=== PATIENT | female | born 1995 ===

== ENCOUNTER 2016-10-26 00:45 | Inpatient (IN) | payer OTHER ==
[2016-10-26 01:08] VITALS: BMI 25.2
[2016-10-26] MEDS ORDERED: Oxytocin 20 units in LR 2,000 ML IV ONE (01:21)
[2016-10-26 01:22] LABS: HEMATOCRIT 35.5 % (34.0-47.0); MEAN CELL VOLUME 92.5 fL (81.0-99.0); MEAN CORPUSCULAR HEMOGLOBIN 30.6 pg (27.0-31.0); MEAN CORPUSCULAR HGB CONC 33.1 g/dL (33.0-37.0); MEAN PLATELET VOLUME 8.8 fL (7.2-11.7); RED CELL DISTRIBUTION WIDTH 15.7 % (11.5-14.5); WHITE BLOOD COUNT 11.1 K/uL (4.8-10.8)
[2016-10-26] MEDS ORDERED: Lidocaine 2% Inj (20ml) ONE (01:27)
[2016-10-26] MEDS ORDERED: Lactated Ringer's 1,000 ML IV SCH (01:30)
--- NOTE | 2016-10-26 01:30 | OBHP ---
Datetime: 10/26/2016 01:25 IP Adm Impression: Term, intrauterine ; Active labor IP Admit Plan: Admit to unit; Initiate labor protocol Admit Comment, IP Provider: Patient with reported SROM at midnight. Fully dialted on my exam. Dr. Ramos present and took over care of her patient Assessment: 21 yo P1, 38wweks, at end of Stage 1 of labor. Category 1 tracing. Clinically stble. Plan: - Anticipate vaginal delivery Presentation-Admit: Vertex FHR - Baseline A Provider: 150 Contraction Comments Provider: 2-4 Gestation - Est Wks by US: 38.0 EGA AdmitDate IP: 39.1 IP Chief Complaint: Uterine contractions; Suspected ruptured membranes NICHD Variability Prov Fetus A: Moderate 6-25bpm NICHD Decel Fetus A IP Provider: None Dilatation, Provider: 10 Effacement, Provider: 100 Station, Provider: 2
[2016-10-26 01:33] LABS: CHLORIDE 101 mmol/L (98-107)
[2016-10-26 01:34] LABS: POTASSIUM 4.5 mmol/L (3.6-5.2); SODIUM 133 mmol/L (132-148)
[2016-10-26 01:36] LABS: ALB/GLOB RATIO 0.9 (1.0-2.1); BILIRUBIN,TOTAL 0.9 mg/dL (0.2-1.3); CARBON DIOXIDE 22 mmol/L (22-30); GFR AFRICAN-AMERICAN > 60
[2016-10-26 01:37] LABS: ALKALINE PHOSPHATASE 156 U/L (38-126); ALT/SGPT 12 U/L (9-52); AST/SGOT 33 U/L (14-36); BLOOD UREA NITROGEN 10 mg/dL (7-17); CALCIUM 8.6 mg/dl (8.6-10.4); GLUCOSE,RANDOM 82 mg/dL (65-105)
--- NOTE | 2016-10-26 01:50 | OBADHP ---
Datetime: 10/26/2016 01:43 Admit Comment, IP Provider: chief complaint-contractions HPI 21 y/o at 38 wga with c/o contractions since 9 pm on 10/25/16 and srom at midnight.contrac tions became more painful after that and hence she came to the ER.Patient denies any vaginal bleeding .Reports active movement cousre complicated by recurrent bartholins cyst PMH denies PSH bartholins cyst drainage OBGYN HX ; nvdx1; first complicated by oligohydramnios Social hx denies tobacco, alcohol or illicit drug use Exam see exam section A/P 21 Y/o at 38 wga in labor.SROM -admit -see orders Pelvic Type - PN: Adequate Extremities - PN: Normal Abdomen - PN: Normal Back - PN: Normal Lungs - PN: Normal Heart - PN: Normal Neurologic - PN: Normal General - PN: Normal Presentation-Admit: Vertex FHR - Baseline A Provider: 140s Contraction Comments Provider: every 2 min Gestation - Est Wks by US: 38.0 IP Hx Assessment: The History has been Reviewed and is Current Vital Signs Provider: Reviewed; Within Normal Limits IP Chief Complaint: Uterine contractions NICHD Variability Prov Fetus A: Moderate 6-25bpm Dilatation, Provider: 10 Effacement, Provider: 100 Station, Provider: 2 Genitourinary Exam: Normal DTRs - PN: Normal EGA AdmitDate IP: 38.0 IP Adm Impression: Term, intrauterine ; Active labor IP Admit Plan: Admit to unit Datetime: 10/26/2016 01:25 NICHD Decel Fetus A IP Provider: None
[2016-10-26] MEDS ORDERED: Oxycodone/Acetaminophen 5/325 mg Tab PO PRN (01:57)
[2016-10-26] MEDS ORDERED: Benzocaine/Menthol 20%-0.5% Topical Spray (60 ml) TOP PRN (01:57)
--- NOTE | 2016-10-26 01:57 | OBDS ---
DELIVERY PERSONNEL Nurse Micro Computer Specialist Certified: N/A Delivery Doctor: Pamella Wesley MD Scrub Nurse: N/A General Expeditor: EMERALD DAVISON Anesthesiologist: N/A Grinder Set Up Operator Surface: N/A Resident: N/A MATERNAL INFORMATION Delivery Anesthesia: None Medications in Delivery: pitocin 20 units in 1L LR Placenta Cultured: No Maternal Complications: None RN Comments: BARTHOLIN'S CYST DRAINED BY DR WESLEY Provider Comments: patient rapidly progressed to being fully dilated. of a male from CEASAR position.Body and shoulders delivered without difficulty.Cord clampe d and cut.cord blood collected.Placenta spontaneosuly delivered.Lower uterine segment noted to be sharda marian.Im methergine 0.2 mg given afer which fundus noted to be firm. Right bartholin's gland cyst noted.Verbal consent obtained for the cyst drainage from patient.Are a cleaned with betadine.Needle drainage done and site of drainage noted to be hemostatic.Clear serous fluid drained.Bimanual exam done and it was noted that fundus was firm and bleeding average.Patient and infant stable and bonding.Apgars 9/9 at 1 and 5 min of life. weight 6 pounds 6 ounces LABOR SUMMARY EDC: 11/09/2016 00:00 No. Babies in Womb: 1 Attempted: No Labor Anesthesia: None LABOR INFORMATION Onset of Labor: 10/26/2016 00:00 Complete Dilatation: 10/26/2016 01:07 Group B Beta Strep: Done, Result Unknown Antibiotics # of Doses: 1 Antibiotics Time of Last Dose: 01010/26/2016 MEMBRANES Membranes Rupture Method: Spontaneous Rupture of Membranes: 10/26/2016 00:00 Length of Rupture (hrs): 1.30 Amniotic Fluid Color: Clear Amniotic Fluid Amount: Small Amniotic Fluid Odor: Normal STAGES OF LABOR Stage 1 hrs: 1 Stage 1 min: 7 Stage 2 hrs: 0 Stage 2 min: 11 Stage 3 hrs: 0 Stage 3 min: 7 Total Time in Labor hrs: 1 Total Time in Labor min: 25 VAGINAL DELIVERY Episiotomy: None Laceration Extension: N/A Laceration Type: None Other Laceration: N/A Laceration Repair: N/A Initial Vag Sponge Count: 10 X-RAYS, 1 LAP Final Vag Sponge Count: 10 X-RAYS, 1 LAP Initial Vag Sharps Count: 0 Final Vag Sharps Count: 0 Sponge Count Correct: Yes; Vaginal Sweep Performed Sharps Count Correct: N/A Count Comment: ALL ACCOUNTED FOR BABY A INFORMATION Infant Delivery Date/Time: 10/26/2016 01:18 Method of Delivery: Vaginal Forceps: N/A SHOULDER DYSTOCIA BABY A Infant Delivery Date/Time: 10/26/2016 01:18 PRESENTATION/POSITION BABY A Presentation: Cephalic Cephalic Presentation: Vertex Vertex Position: Left Occipital Anterior Breech Presentation: N/A PLACENTA INFORMATION BABY A Placenta Delivery Time : 10/26/2016 01:25 Placenta Method of Delivery: Spontaneous Placenta Status: Delivered SCORES BABY A Heart Rate 1 min: >100 bpm Resp Effort 1 min: Good Cry Reflex Irritability 1 min: Cough or Sneeze or Pulls Away Muscle Tone 1 min: Active Motion Color 1 min: Body [place], Extremities Blue Resuscitation Effort 1 min: N/A SCORE 1 MIN: 9 Heart Rate 5 min: >100 bpm Resp Effort 5 min: Good Cry Reflex Irritability 5 min: Cough or Sneeze or Pulls Away Muscle Tone 5 min: Active Motion Color 5 min: Body Vol[place], Extremities Blue SCORE 5 MIN: 9 INFORMATION BABY A Gestational Age at Delivery: 39.1 Gestational Status: Term Outcome : Liveborn Infant Condition : Stable Sex: Male IDENTIFICATION/MEDS BABY A ID Band Number: [id number] ID Band Location: Left Leg; Left Arm Sensor Applied: Yes Sensor Number: [id number] Sensor Location : Right Leg Vitamin K Given : Aquamephyton 1 mg IM; Left Thigh Erythromycin Given: Given Both Eyes WEIGHT/LENGTH BABY A Birthweight (gms): 2905 Infant Weight (lb): 6 Infant Weight (oz): 6 Length Inches: 19.50 Length cms: 49.5 CORD INFORMATION BABY A No. Cord Vessels: #3 Nuchal Cord : N/A Nuchal Cord Other: N/A True Knot: N/A Infant Cord pH Baby Arterial: N/A Cord pH Baby Venous: N/A Cord Blood Taken: Yes Banking/Donate Info: N/A Infant Suction: None ASSESSMENT BABY A Infant Complications: None Physical Findings at Delivery: Within Normal Limits Infant Respirations: Appears Normal Seamer Elastic Band/ALS Called : No Infant Care By: van Transferred To: Remains with Mother
[2016-10-26] MEDS: Oxycodone/Acetaminophen 5/325 mg Tab PO PRN ×3 (04:31→20:37)
[2016-10-26 07:40] VITALS: O2SAT 98
[2016-10-26] MEDS: Multiple Vitamins Tab PO SCH (09:27)
[2016-10-27 06:23] LABS: EOS # 0.2 K/uL (0.0-0.7); MEAN PLATELET VOLUME 8.7 fL (7.2-11.7); RED CELL DISTRIBUTION WIDTH 15.8 % (11.5-14.5)
[2016-10-27 06:26] LABS: BASO % 0.3 % (0.0-2.0); EOS % 1.6 % (0.0-4.0); HEMATOCRIT 32.6 % (34.0-47.0); LYMPH # 2.9 K/uL (1.0-4.3); LYMPH % 23.8 % (20.0-40.0); MEAN CELL VOLUME 93.3 fL (81.0-99.0); MEAN CORPUSCULAR HEMOGLOBIN 30.8 pg (27.0-31.0); MONO # 0.6 K/uL (0.0-0.8); MONO % 5.3 % (0.0-10.0); WHITE BLOOD COUNT 12.1 K/uL (4.8-10.8)
[2016-10-27] MEDS: Multiple Vitamins Tab PO SCH (09:10)
[2016-10-27 16:16] VITALS: BP 100/57; PULSE 85; RESP 20; TEMP 97.1
--- NOTE | 2016-10-27 21:20 | OBPPN ---
Datetime: 10/27/2016 21:15 PP Pain Prov: Within normal limits PP Nausea Prov: Denies PP Flatus Prov: Yes PP BM Prov: No PP Heart Prov: Normal PP Lungs Prov: Normal PP Abdomen/Uterus Prov: Normal PP Lochia Prov: Normal PP Vulva/Perineum Prov: Normal PP CVA Tenderness Prov: Normal PP Extremities Prov: Normal PP C/S Incision Prov: Not Applicable PP Progress Prov: Normal PP Impression Prov: Normal progression PP Plan Prov: Discharge PP Progress Note Prov: Late note entry for patient seen at 7.15 am S-patient denies any compalint.pain well controlled.denies nausea, vomiting, headache. chest pain, shortness of breath, numbness or tingling in hands and feet OVSS Afebrile Fundus firm and below umbilcus Extremities no calf tenderness A/P Patient s/p vaginal delivery ppd 1 doing well -requesting to go home discharge follow up in clinic in 6 weeks Vital Signs Provider PP: Reviewed; Within Normal Limits
--- NOTE | 2016-10-27 21:22 | OBDCSUM ---
Datetime: 10/27/2016 09:30 Discharged to, Provider: Home Follow up at, Provider: Dr. Ramos Disch Instr Activity: Normal activity Disch Instr Diet: Regular Discharge Diet restrict Prov: none Discharge Instructions, Provider: Routine instructions given Discharge Diagnosis, Provider: Term Delivered Discharge Time: 10/27/2016 16:30 Follow up in weeks, Provider: 4 weeks Disch Referrals: None Disch Activity Restrictions: No sexual activity; Nothing in vagina - [place], tampons, douche Discharge Comment, Provider: go to er if you have fever, pain, heavy bleeding or any other problems Discharge Diagnosis Prov Other: s/p vaginal delivery
== END 2016-10-27 17:10 | disposition home or self-care (01) | DRG 373 ==
LOC: C.EROB 00:45 → C.4D 00:57 → C.4M 03:00
PROVIDERS: ADMIT Student in an Organized Health Care Education/Training Program; ATTEND Student in an Organized Health Care Education/Training Program
PROC: 10E0XZZ Delivery of Products of Conception, External Approach (ICD-10-PCS; principal; 2016-10-26)
PROC: 0H9AXZZ Drainage of Inguinal Skin, External Approach (ICD-10-PCS; 2016-10-26)
DX: O26.893 Other specified pregnancy related conditions, third trimester (principal); N75.0 Cyst of Bartholin's gland; Z37.0 Single live birth; Z3A.38 38 weeks gestation of pregnancy

== ENCOUNTER 2017-08-02 15:05 | Day surgery (SDC) | payer OTHER ==
[2017-08-02 13:11] VITALS: BMI 19.7
[2017-08-02] MEDS ORDERED: Lactated Ringer's 1,000 ML IV ONE ×3 (16:33→19:30)
[2017-08-02] MEDS ORDERED: Propofol 10 mg/ml Inj (20 ML) ONE (18:38)
[2017-08-02] MEDS ORDERED: Midazolam 2 MG/2 ML VIAL ONE (18:38)
[2017-08-02] MEDS ORDERED: Bacitracin Ointment 30 GM TUBE ONE (20:01)
[2017-08-02] MEDS ORDERED: Oxycodone/Acetaminophen 5/325 mg Tab PO PRN (20:22)
[2017-08-02] MEDS ORDERED: Benzocaine/Menthol 20%-0.5% Topical Spray (60 ml) EXT PRN (20:28)
[2017-08-02 20:41] VITALS: O2SAT 100
[2017-08-02 22:32] VITALS: BP 101/67; PULSE 96; RESP 13; TEMP 98.2
--- NOTE | 2017-08-03 06:12 | OP ---
PROCEDURE DATE: 08/02/2017 PREOPERATIVE DIAGNOSIS: Right Bartholin's cyst approximately 5 cm in size. POSTOPERATIVE DIAGNOSIS: Right Bartholin's cyst approximately 5 cm in size. PROCEDURE PERFORMED: Removal of Bartholin's cyst and right Bartholin gland. SURGEON: Bo Ramos MD. VACUUM CLEANER OPERATOR: None. ANESTHESIA: General LMA. ANESTHESIOLOGIST: Dr. Rasmussen. COMPLICATIONS: None. ESTIMATED BLOOD LOSS: 300 mL. FINDINGS: An enlarged right Bartholin's cyst approximately 5 cm x 3 cm in size, overlying labia was extremely thin. SPECIMEN SEEN: Bartholin's cyst. PROCEDURE IN DETAIL: After informed consent was obtained, the patient was taken to the operating room, placed in dorsal supine position. General anesthesia was induced and the patient was intubated on LMA, was placed without any difficulty. She was thereafter placed in dorsal lithotomy position, and prepped and draped in the usual sterile manner. The area of the right labia with the Bartholin's cyst was inspected and noted to be approximately 5 cm x 3 cm in size. No induration was noted in the area of the cyst. It was fluctuant on examination. An elliptical incision was made in the vaginal mucosa at the point of the greatest extension. The vaginal mucosa was thereafter dissected off the Bartholin's cyst. With gradual dissection, the vaginal mucosa with the Bartholin's cyst was removed until the underlying Bartholin's gland was released and the base of the Bartholin's gland along with the cyst attached to it was cut and the specimen removed. The base was noted to be bleeding, and this was suture-ligated with multiple [id number] sutures of 2-0 chromic. Adequate hemostasis was noted from it. The mucosal defect was reapproximated with 2-0 Vicryl in a continuous manner. Adequate hemostasis was noted from the repair. Once it was confirmed that the patient had adequate hemostasis, was applied. The patient was extubated and taken to the recovery room in stable condition. Bo Ramos MD
== END 2017-08-02 22:30 | disposition home or self-care (01) ==
LOC: C.SDS 15:05
PROVIDERS: ATTEND Student in an Organized Health Care Education/Training Program
DX: N75.0 Cyst of Bartholin's gland (principal)
CPT/HCPCS: 56740; 87070; 88304; J1885; J2001; J2250; J2405; J2704; J3010; J7120